=== PATIENT | female | born 1995 | race African-American/Black ===

== ENCOUNTER 2023-06-28 18:39 | Emergency (ER) | payer MEDICAID, OTHER ==
[~2023-06-28] VITALS: Ht 157.5 cm; Wt 92.0 kg
[2023-06-28 18:43] VITALS: O2SAT 97
[2023-06-28 22:00] VITALS: BP 132/79; PULSE 96; RESP 15
[2023-06-29] MEDS ORDERED: PNV1TABL50 MT (03:12)
== END 2023-06-28 22:18 | disposition home or self-care (01) ==
LOC: ER 18:39
DX: O99.612 Diseases of the digestive system complicating pregnancy, second trimester (principal); O26.892 Other specified pregnancy related conditions, second trimester; O16.2 Unspecified maternal hypertension, second trimester; R10.32 Left lower quadrant pain; Z88.8 Allergy status to other drugs, medicaments and biological substances; Z3A.26 26 weeks gestation of pregnancy
CPT/HCPCS: 99283; Z7610

== ENCOUNTER 2023-06-28 22:32 | Observation (INO) | payer MEDICAID, OTHER ==
[~2023-06-28] VITALS: Ht 167.6 cm; Wt 93.0 kg
[2023-06-28] MEDS ORDERED: ACETAMINOPHEN 325MG TABLET PO NR (23:00)
[2023-06-28 23:13] VITALS: TEMP 98.5
[2023-06-29 00:25] LABS: CLARITY URINE CLEAR (CLEAR); COLOR URINE YELLOW (YELLOW); GLUCOSE URINE NEGATIVE (NEGATIVE); KETONES URINE 1+ (NEGATIVE); LEUKOCYTE ESTERASE URINE 2+ (NEGATIVE); NITRITE URINE NEGATIVE (NEGATIVE); OCCULT BLOOD URINE TRACE (NEGATIVE); PROTEIN URINE NEGATIVE (NEGATIVE); SPECIFIC GRAVITY URINE 1.009 (1.005-1.030); UROBILINOGEN URINE 0.2 E.U./dL (0.2-1.0)
[2023-06-29 00:29] LABS: BACTERIA URINE 1+; SQUAMOUS EPITHELIAL CELL URINE 1+ /lpf (RARE/1+); YEAST URINE NONE SEEN
[2023-06-29] MEDS ORDERED: PNV1TABL50 MT (03:12)
== END 2023-06-29 03:35 | disposition home or self-care (01) ==
LOC: 8 EST LDRP 22:32
PROVIDERS: ADMIT Obstetrics & Gynecology; ATTEND Obstetrics & Gynecology
DX: O99.891 Other specified diseases and conditions complicating pregnancy (principal); M54.9 Dorsalgia, unspecified; O46.92 Antepartum hemorrhage, unspecified, second trimester; O26.892 Other specified pregnancy related conditions, second trimester; R10.9 Unspecified abdominal pain; Z3A.26 26 weeks gestation of pregnancy; V43.02XA Car driver injured in collision with other type car in nontraffic accident, initial encounter; Y93.89 Activity, other specified; Y92.412 Parkway as the place of occurrence of the external cause; Y99.8 Other external cause status
CPT/HCPCS: 99281; 81003; 76818; 76805; 59025; G0378 ×3; G0379